=== PATIENT | female | born 1970 | race Caucasian/White ===

== ENCOUNTER 2017-06-15 14:38 | Emergency (ER) | payer OTHER ==
--- NOTE | ~2017-06-15 | ER ---
[facility] 47 [facility] [address] ROOM: [place] [id number] LOCATION: [facility] ADMIT DATE: 06/15/2017 ER/Outpatient Report DISCHARGE DATE: 06/15/2017 FAMILY PHYSICIAN: Physician, Unknown ATTENDING PHYSICIAN: Yokasta Bhakta Time of Arrival: 1436 hours. Time of Evaluation: 1458 hours. CHIEF COMPLAINT: Illness. HISTORY OF PRESENT ILLNESS: The patient arrived per [facility] ambulance. She states that she had a normal morning, was feeling fine, went to the library about an hour ago, was just reading the newspaper when she started feeling dizzy and lightheaded and nauseated, felt like she was going to pass out, but she never passed out. She did have some slight chest pressure at that time. Denies having any pain at this time. She said that she was nauseated but did not vomit. Reports that she ate a donut and coffee this morning around 10, and then around noon, she did have a sandwich at home. States her son ate the same thing she did, and he has not felt ill in any way. CURRENT MEDICATIONS: On her chart. She is taking her Zoloft, her thyroid medicine. She has been out of for the past 2 to 3 weeks. She also ran out of her vitamin D and B12 but has continued to take the Zoloft and Neurontin. ALLERGIES: CODEINE AND MORPHINE. PAST MEDICAL HISTORY: Restless legs syndrome, anxiety, depression, states she was diagnosed with borderline diabetes but not on any medicine for it, and hypothyroidism. PAST SURGICAL HISTORY: Knee surgery and hysterectomy. She was in the hospital in December 2015 for noncardiac epigastric pain. SOCIAL HISTORY: She lives with her significant other. She has a young son whom she states has caused some stress lately. Denies use of tobacco or drugs. Drinks alcohol on occasional basis only. Sees Dr. Ferrari as her primary provider. REVIEW OF SYSTEMS: [facility] 47 Y [address] ROOM: [place] [id number] LOCATION: [facility] ADMIT DATE: 06/15/2017 ER/Outpatient Report DISCHARGE DATE: 06/15/2017 FAMILY PHYSICIAN: Physician, Unknown ATTENDING PHYSICIAN: Yokasta Bhakta All negative other than those mentioned in the HPI. PHYSICAL EXAMINATION: VITAL SIGNS: She weighs 74.1 kg, blood pressure is 134/73, pulse is 70, respirations 16, temperature of 97.9, tympanic O2 saturation is 100% on room air. GENERAL: She is awake, alert, and oriented x4. SKIN: [place], warm, and dry. RESPIRATIONS: Even and nonlabored. Pupils are equal and reactive to light. NECK: Supple. No lymphadenopathy. LUNGS: Lung sounds are clear throughout. HEART: Regular rate and rhythm. ABDOMEN: Soft, nondistended. Bowel sounds are present. EXTREMITIES: No peripheral edema is noted. Strong pedal pulses. The patient has a saline lock in her left antecubital area that was placed by the paramedics. LABORATORY DATA AND X-RAYS: EKG was completed. It shows sinus rhythm. Does not show changes from her previous EKGs from December 2015. CBC is within normal limits. Chem panel: Sodium is 141, potassium is 3.5, chloride 112, BUN 13, creatinine 0.8. Cardiac enzymes are normal. Free T4 was 0.9 with a TSH of 1.72. Clean-catch UA was obtained, it is negative for infection. EMERGENCY DEPARTMENT COURSE: The patient did have orthostatic blood pressures done, lying blood pressure was 143/72 with pulse of 61; sitting 129/65 with pulse of 81, standing 141/76 with pulse of 82. She states she was nauseated without activity. I did give her Zofran 4 mg IV and started a liter of fluids at a wide-open rate. She was continued to be monitored. Vital signs remained stable. She states she was feeling better. IMPRESSION: 1. Dizziness. 2. Viral illness. PLAN: Home, rest, fluids. Follow up with her primary provider in 2 to 3 days. If symptoms persist, return to the ER as needed. Prescription was written for Zofran. The patient verbalized understanding. BELLO ESCOBEDO APRN FOR YOKASTA BHAKTA MD PATIENT'S NAME: MARION HAYES [facility] AGE: 47 Y [address] ROOM: [place], [place] [address] LOCATION: [facility] ADMIT DATE: 06/15/2017 ER/Outpatient Report DISCHARGE DATE: 06/15/2017 FAMILY PHYSICIAN: Matt Renner ATTENDING PHYSICIAN: Yokasta Bhakta/micaela /[id number] d: 06/15/17 2354 t: 06/16/17 1553, OUTPATIENT REPORT
[~2017-06-15 14:38] MED LIST: ADVIL200 MG PO; BIOTIN800 MCG PO; NEURONTIN300 MG PO; PROTONIX40 MG PO; ZOLOFT100 MG PO
[2017-06-15 15:06] LABS: BILIRUBIN URINE NEGATIVE (NEGATIVE); BLOOD URINE NEGATIVE /UL (NEGATIVE); COLOR URINE YELLOW (YELLOW); GLUCOSE URINE NEGATIVE (NEGATIVE); KETONE URINE NEGATIVE (NEGATIVE); LEUKOCYTES URINE NEGATIVE /UL (NEGATIVE); NITRITE URINE NEGATIVE (NEGATIVE); PROTEIN URINE NEGATIVE (NEGATIVE); TURBIDITY URINE CLEAR (CLEAR); UROBILINOGEN URINE NORMAL (NORMAL)
[2017-06-15 15:06] LABS: BASOPHIL % 0.3 %; EOSINOPHIL # 0.1 K/uL (0.0-0.5); EOSINOPHIL % 2.2 %; HEMOGLOBIN 13.3 g/dL (10.0-15.0); IMMATURE GRANULOCYTE % 0.5 %; LYMPHOCYTE # 1.8 K/uL (0.8-4.0); LYMPHOCYTE % 29.7 %; MCH 32.2 pg (27.0-34.0); MCHC 35.9 gm/dL (32.0-36.5); MCV 89.6 fl (83.0-98.0); MONOCYTE # 0.6 K/uL (0.0-1.0); MONOCYTE % 9.4 %; MPV 10.5 fl (9.4-12.4); NEUTROPHIL # (ANC) 3.5 K/uL (1.8-7.8); NEUTROPHIL % 57.9 %; NRBC % 0 /100WBC (0-0.00); PLATELET COUNT 224 K/uL (150-450); RBC 4.13 M/uL (3.50-5.50); RDW-CV 12.6 % (11.9-14.6)
[2017-06-15 15:12] LABS: INR - (THERAPEUTIC) 0.97 (0.92-1.07); PROTIME 10.2 SECONDS (9.8-11.4); PTT 27 SECONDS (25-32)
[2017-06-15 15:23] LABS: ALBUMIN 3.8 gm/dL (3.5-5.0); ALK PHOS 110 IU/L (33-138); ALT 29 IU/L (12-78); ANION GAP 11.5 (10.0-19.0); AST 15 IU/L (10-40); BLOOD UREA NITROGEN 13 mg/dL (6-24); CALCIUM 8.4 mg/dL (8.5-10.5); CHLORIDE 112 mMol/L (96-110); CO2 21 mMol/L (22-32); CPK 76 IU/L (21-215); CREATININE 0.8 mg/dL (0.5-1.1); MAGNESIUM 2.3 mg/dL (1.8-2.6); POTASSIUM 3.5 mMol/L (3.7-5.1); SODIUM 141 mMol/L (135-145); TOTAL BILIRUBIN 0.5 mg/dL (0.0-1.5); TOTAL PROTEIN 7.5 g/dL (6.0-8.4)
== END 2017-06-15 18:29 | disposition disaster alternative care site (69) ==
LOC: GMED 14:38
PROVIDERS: Emergency Medicine
DX: R42 Dizziness and giddiness (principal); B34.9 Viral infection, unspecified; E03.9 Hypothyroidism, unspecified; G25.81 Restless legs syndrome; F41.9 Anxiety disorder, unspecified; F32.9 Major depressive disorder, single episode, unspecified; Z88.5 Allergy status to narcotic agent; Z98.890 Other specified postprocedural states; Z90.710 Acquired absence of both cervix and uterus; Z79.899 Other long term (current) drug therapy
CPT/HCPCS: J2405; J7030